=== PATIENT | male | born 1980 | race Caucasian/White ===

== ENCOUNTER → 2019-04-02 | Outpatient (CLI) | payer OTHER | LOC: M PAIN 15:15 | PROVIDERS: ATTEND Anesthesiology | DX: Z53.20 Procedure and treatment not carried out because of patient's decision for unspecified reasons (principal) ==

== ENCOUNTER → 2021-02-23 | Outpatient (REF) | payer OTHER ==
[2021-02-23 17:45] LABS: C REACTIVE PROTEIN QUANTITATIV < 0.30 MG/DL (0.00-0.30); CPK CREATINE PHOSPHOKINASE 151 U/L (39-308); IRON (FE) 98 UG/DL (65-175); MAGNESIUM LEVEL 2.2 MG/DL (1.8-2.4); RHEUMATOID FACTOR QUANT < 10.0 IU/ML (<15.0); TOTAL 25(OH) VITAMIN D 40.6 NG/ML (30.0-100.0); VITAMIN B12 LEVEL 352 PG/ML (247-911)
[2021-02-28 00:11] LABS: ANA (HEP2) Negative (.); CYCLIC CITRULLINATED PEPTIDE 6 units (0-19); SSA SJOGRENS A <0.2 AI (0.0-0.9); SSB SJOGRENS B <0.2 AI (0.0-0.9)
== END ==
LOC: M SFHCRHEU 14:20
PROVIDERS: ATTEND Internal Medicine
DX: M25.40 Effusion, unspecified joint (principal); M79.10 Myalgia, unspecified site; R68.2 Dry mouth, unspecified

== ENCOUNTER → 2021-03-15 | Outpatient (CLI) | payer OTHER | LOC: M SLEEP HO 10:40 | PROVIDERS: ATTEND Internal Medicine | DX: R53.83 Other fatigue (principal) ==